=== PATIENT | female | born 1950 | race Caucasian/White ===

== ENCOUNTER 2016-12-31 12:05 | Emergency (ER) | payer BC ==
[2016-12-31] MEDS ORDERED: Zofran 4 MG/2 ML VIAL IV ONE (12:15)
[2016-12-31] MEDS ORDERED: Sodium Chloride 0.9% 1000 ML 1,000 ML IV STA (12:17)
[2016-12-31] MEDS ORDERED: Zofran 4 MG/2 ML VIAL ONE (12:21)
[2016-12-31] MEDS ORDERED: Sodium Chloride 0.9% 1000 ML 1,000 ML ONE (12:21)
[2016-12-31 12:49] LABS: BASOPHIL % 0.4 % (0.0-0.4); Eosinophil % 1.5 % (0.00-5.0); Granulocytes % 76.5 % (36.0-66.0); Lymphocytes % 15.8 % (24.0-44.0); Mean Cell Volume 93.8 fl (78-100); Mean Platelet Volume 9.8 fl (6-9.5); Monocytes % 5.8 % (0.0-12.0); Platelet Count 195 K/mm3 (150-450); Red Blood Count 3.85 M/mm3 (4.1-5.4); Red Cell Distribution Width 12.6 % (11.5-14.0); White Blood Count 5.2 K/mm3 (4.0-10.5)
[2016-12-31 12:53] LABS: Mean Corpuscular Hemoglobin 30.3 pg (26-32)
[2016-12-31 12:54] LABS: Collection Type VOID
--- NOTE | 2016-12-31 12:54 | ERPHSYRPT ---
- History of Present Illness Time Seen by Provider: 12/31/16 12:11 Source: patient Exam Limitations: no limitations Patient Subjective Stated Complaint: dizziness since scow captain Triage Nursing Assessment: dizziness and nausea scow captain. took antivert scow captain due to dizziness and room spinning. denies problems urinating or bowels. states has sinus fullness to lt face. denies cough or nasal drainage. ate breakfast. skin warm and dry. c/o dizziness worse with change of position Physician History: H/O prior episode of vertigo relieved by Antivert. No chest pain, SOB, or MCDONOUGH. Timing/Duration: today Severity: mild Character of Deficits: none Deficits: no difficulties Baseline/Normal Cognition: alert oriented x 3 Current Cognition: alert oriented x 3 Baseline Gait: walks w/o assistance Associated Symptoms: nausea, No ringing in ears, No vision changes, No chest pain, No headache Allergies/Adverse Reactions: No Known Drug Allergies Allergy (Unverified 12/31/16 12:16) Home Medications: Pravastatin Sodium 20 mg PO HS 12/31/16 [History] Hx Tetanus, Diphtheria Vaccination/Date Given: Yes Hx Influenza Vaccination/Date Given: Yes Hx Pneumococcal Vaccination/Date Given: No Immunizations Up to Date: Yes - Review of Systems Constitutional: No Symptoms Eyes: No Symptoms Ears, Nose, & Throat: No Symptoms Respiratory: No Symptoms Cardiac: No Symptoms Abdominal/Gastrointestinal: No Symptoms Musculoskeletal: No Symptoms Skin: No Symptoms Neurological: Dizziness Psychological: No Symptoms Endocrine: No Symptoms Hematologic/Lymphatic: No Symptoms - Past Medical History Pertinent Past Medical History: Yes Cardiac History: High Cholesterol - Past Surgical History Past Surgical History: No - Social History Smoking Status: Never smoker Exposure to second hand smoke: No Drug Use: none Patient Lives Alone: No - Nursing Vital Signs Nursing Vital Signs: Initial Vital Signs Temperature 98.1 F Temperature Source Oral Pulse Rate 71 Respiratory Rate 22 Blood Pressure [Right Arm] 107/68 Pain Intensity 0 - [place] Coma Scale Best Eye Response (Martin): (4) open spontaneously Best Verbal Response ([place]): (5) oriented Best Motor Response (Martin): (6) obeys commands Martin Total: 15 - Physical Exam General Appearance: moderate distress Eye Exam: bilateral eye: normal inspection, PERRL, EOMI Ears, Nose, Throat Exam: normal ENT inspection, TMs normal, pharynx normal Neck Exam: normal inspection, non-tender, supple, full range of motion Respiratory: normal breath sounds, lungs clear Cardiovascular: regular rate/rhythm, normal heart sounds, normal peripheral pulses Gastrointestinal: soft, normal bowel sounds Back Exam: normal inspection, normal range of motion Extremity Exam: normal inspection, normal range of motion, pelvis stable Mental Status: alert, oriented x 3 boarder hand Exam: normal hearing, normal speech, PERRL Motor/Sensory: no motor deficit, no sensory deficit Skin Exam: normal color, warm, dry SpO2 Interpretation: normal SpO2: 98 Oxygen Delivery: Room Air - Course Nursing assessment & vital signs reviewed: Yes EKG Interpreted by Me: RATE (73), Sinus Rhythm, NORMAL AXIS, NORMAL INTERVALS, NORMAL QRS - CT Exams Head CT Interpretation: Negative, Tele-radiologist Report Ordered Tests: Active Orders 24 hr Category Date Time Status EKG-ER Only STAT Care 12/31/16 12:15 Active IV Insertion STAT Care 12/31/16 12:18 Active Orthostatic Vital Signs STAT Care 12/31/16 12:18 Active HEAD WITHOUT CONTRAST [CT] Stat Exams 12/31/16 12:15 Completed CBC W DIFF Stat Lab 12/31/16 12:43 Completed CMP Stat Lab 12/31/16 12:43 Completed TROPONIN Stat Lab 12/31/16 12:43 Completed UA W/RFX UR CULTURE Stat Lab 12/31/16 12:35 Completed Medication Summary Discontinued Medications Generic Name Dose Route Start Last Admin Trade Name Freq PRN Reason Stop Dose Admin Sodium Chloride 1,000 mls @ 999 mls/hr 12/31/16 12:17 12/31/16 12:30 Sodium Chloride 0.9% 1000 Ml IV 12/31/16 13:17 999 mls/hr .Q1H1M STA Administration Sodium Chloride Confirm 12/31/16 12:21 Sodium Chloride 0.9% 1000 Ml Administered 12/31/16 12:22 Dose 1,000 mls @ ud .ROUTE .STK-MED ONE Ondansetron HCl 4 mg 12/31/16 12:15 12/31/16 12:30 Zofran 4 Mg/2 Ml Vial IV 12/31/16 12:16 4 mg STAT ONE Administration Ondansetron HCl Confirm 12/31/16 12:21 Zofran 4 Mg/2 Ml Vial Administered 12/31/16 12:22 Dose 4 mg .ROUTE .STK-MED ONE Lab/Rad Data: Laboratory Result Diagrams 12/31/16 12:43 12/31/16 12:43 Laboratory Results 12/31/16 12/31/16 12/31/16 Range/Units 12:43 12:43 12:35 WBC 5.2 (4.0-10.5) K/mm3 RBC 3.85 L (4.1-5.4) M/mm3 Hgb 11.7 L (12.0-16.0) gm/dl Hct 36.1 (35-47) % MCV 93.8 (78-100) fl MCH 30.3 (26-32) pg MCHC 32.4 (32-36) g/dl RDW 12.6 (11.5-14.0) % Plt Count 195 (150-450) K/mm3 MPV 9.8 H (6-9.5) fl Gran % 76.5 H (36.0-66.0) % Lymphocytes % 15.8 L (24.0-44.0) % Monocytes % 5.8 (0.0-12.0) % Eosinophils % 1.5 (0.00-5.0) % Basophils % 0.4 (0.0-0.4) % Basophils # 0.02 (0-0.4) Sodium 140 (136-145) mEq/L Potassium 4.0 (3.5-5.1) mEq/L Chloride 104 (98-107) mEq/L Carbon Dioxide 27.3 (21-32) mEq/L Anion Gap 12.3 (5-15) MEQ/L BUN 19 (9-20) mg/dL Creatinine 1.00 (0.55-1.30) mg/dl Estimated GFR 59 ML/MIN Glucose 115 H (70-110) MG/DL Calcium 8.2 L (8.5-10.1) mg/dL Total Bilirubin 0.3 (0.2-1.0) mg/dL AST 24 (15-37) U/L ALT 25 (12-78) U/L Alkaline Phosphatase 59 (46-116) U/L Troponin I < 0.017 (0.000-0.056) ng/ml Serum Total Protein 6.9 (6.4-8.2) gm/dL Albumin 3.6 (3.4-5.0) g/dL Ur Collection Type VOID Urine Color YELLOW (YELLOW) Urine Appearance CLOUDY (CLEAR) Urine pH 7.0 (5-6) Ur Specific [place] 1.020 (1.005-1.025) Urine Protein NEGATIVE (Negative) Urine Glucose (UA) NEGATIVE (NEGATIVE) mg/dL Urine Ketones NEGATIVE (NEGATIVE) Urine Nitrite NEGATIVE (NEGATIVE) Urine Bilirubin NEGATIVE (NEGATIVE) Urine Urobilinogen 0.2 (0-1) mg/dL Urine WBC (Auto) NEGATIVE (NEGATIVE) Urine RBC (Auto) NEGATIVE (0-5) [place]/ul Specimen Received 12/31/16 1255 - Progress Progress: improved Counseled pt/family regarding: lab results, diagnosis, need for follow-up, rad results - Departure Time of Disposition: 14:00 Departure Disposition: Home Clinical Impression: Vertigo Condition: Stable Critical Care Time: Yes Critical Care Time(excluding separately billable procedures): 75-104 minutes Prescriptions: Meclizine HCl 25 mg [Antivert 25 mg] 1 tab PO Q6H PRN PRN #24 tablet PRN Reason: dizziness Ondansetron [Zofran Odt] 4 mg PO Q6HPRN PRN #10 tab.rapdis PRN Reason: Nausea/Vomiting
[2016-12-31 12:55] LABS: ADD URINE CULTURE? NO (NO); COMPLETE URINE MICROSCOPIC? NO
[2016-12-31 13:12] LABS: ALBUMIN 3.6 g/dL (3.4-5.0); ALKALINE PHOSPHATASE 59 U/L (46-116); ANION GAP 12.3 MEQ/L (5-15); BILIRUBIN,TOTAL 0.3 mg/dL (0.2-1.0); BLOOD UREA NITROGEN 19 mg/dL (9-20); CHLORIDE 104 mEq/L (98-107); Carbon Dioxide 27.3 mEq/L (21-32); Glucose 115 MG/DL (70-110); SGOT/AST 24 U/L (15-37); SGPT/ALT 25 U/L (12-78); SODIUM 140 mEq/L (136-145); Total Protein 6.9 gm/dL (6.4-8.2)
[2016-12-31 13:13] LABS: TROPONIN < 0.017 ng/ml (0.000-0.056)
--- NOTE | 2016-12-31 13:22 | XRAY ---
Indication: Sudden onset nausea and dizziness. Multiple contiguous axial images obtained through the head without contrast. Comparison: None Normal appearing brain parenchyma, ventricles, and bony calvarium. Visualized paranasal sinuses and mastoid air cells are pneumatized and clear. Impression: Normal CT head without contrast exam. CT DI 69.66
[2016-12-31 14:01] VITALS: O2SAT 98
[2016-12-31 14:18] VITALS: BP 115/61; PULSE 74
== END 2016-12-31 14:20 | disposition home or self-care (01) ==
LOC: ED 12:05
DX: R42 Dizziness and giddiness (principal); R11.0 Nausea; E78.00 Pure hypercholesterolemia, unspecified
CPT/HCPCS: 36000; 36415; 70450; 80053; 81000; 84484; 85025; 93005; 96360; 96374; 99284; J2405

== ENCOUNTER 2023-02-08 15:57 | Emergency (ER) | payer MEDICARE, OTHER ==
[2023-02-08] MEDS ORDERED: BENADRYL 50 MG/ML IV ONE (16:07)
[2023-02-08] MEDS ORDERED: solu-MEDROL 125 MG, Sterile H2O 10 ml 2 ML IV ONE ×2 (16:08)
[2023-02-08] MEDS ORDERED: Pepcid 20 MG VIAL IV ONE ×2 (16:09→16:11)
[2023-02-08] MEDS ORDERED: BENADRYL 50 MG/ML ONE (16:11)
[2023-02-08] MEDS ORDERED: Sterile H2O 10 ml IJ ONE (16:11)
[2023-02-08] MEDS ORDERED: solu-MEDROL ONE (16:12)
--- NOTE | 2023-02-08 16:36 | ERPHSYRPT ---
- History of Present Illness Time Seen by Provider: 02/08/23 16:10 Source: patient Exam Limitations: no limitations Patient Subjective Stated Complaint: pt state allergic reaction 15 minutes after new medication Triage Nursing Assessment: pt ambulated into the er; pt is axo x4; c/o allergic reaction; no respiratory distress present; clear lung sounds in all lobes; red raised rash to alok knees, BUE, torso; hypertension; pt denies SOB or pain; pt denies itching Physician History: Patient is a 72-year-old white female who her first dose of a new vitamin herb [id number]-[id number] medicine about 15 minutes later she began to itch and break out in a [employer] rash. She took 125 mg Benadryl and came to the ER. She denies any difficulty breathing or swallowing only the rash and itching. Timing/Duration: today Quality: burning, itchy, painful Severity: moderate Location: generalized Possible Causes: other (Pivj-hjy-[id number] medications) Modifying Factors: Improves With: antihistamine Associated Symptoms: flushing, hives, rash Allergies/Adverse Reactions: No Known Drug Allergies Allergy (Verified 02/08/23 16:06) Home Medications: Pravastatin Sodium 10 mg PO HS 12/31/16 [History] Hx Tetanus, Diphtheria Vaccination/Date Given: Yes Hx Influenza Vaccination/Date Given: Yes Hx Pneumococcal Vaccination/Date Given: No Travel Risk - International Travel Have you traveled outside of the country in past 3 weeks: No - Coronavirus Screening Are you exhibiting any of the following symptoms?: No Close contact with a COVID-19 positive Pt in past 14-21 Days: No - Vaccine Status Have you recieved a Covid-19 vaccination: Yes Planning Rn: Moderna - Vaccination Dates Date of 2cond Vaccination (if applicable): 2020 - Review of Systems Constitutional: No Fever, No Chills Eyes: No Symptoms Ears, Nose, & Throat: No Symptoms Respiratory: No Cough, No Dyspnea Cardiac: No Chest Pain, No Edema, No Syncope Abdominal/Gastrointestinal: No Abdominal Pain, No Nausea, No Vomiting, No Diarrhea Genitourinary Symptoms: No Dysuria Musculoskeletal: No Back Pain, No Neck Pain Skin: Pruritis, Rash Neurological: No Dizziness, No Focal Weakness, No Sensory Changes Psychological: No Symptoms Endocrine: No Symptoms All Other Systems: Reviewed and Negative - Past Medical History Pertinent Past Medical History: Yes Neurological History: No Pertinent History Cardiac History: High Cholesterol Respiratory History: No Pertinent History Endocrine Medical History: No Pertinent History Musculoskeletal History: Osteoarthritis GI Medical History: GERD Other Medical History: OSTEOPENIA - Past Surgical History Past Surgical History: No - Social History Smoking Status: Never smoker Exposure to second hand smoke: No Drug Use: none Patient Lives Alone: No - Nursing Vital Signs Nursing Vital Signs: Initial Vital Signs Temperature 96.4 F 02/08/23 15:58 Pulse Rate 83 02/08/23 15:58 Respiratory Rate 14 02/08/23 15:58 Blood Pressure 166/84 02/08/23 15:58 O2 Sat by Pulse Oximetry 100 02/08/23 15:58 Pain Scale Pain Intensity 0 - Physical Exam General Appearance: mild distress Eye Exam: PERRL/EOMI, eyes nml inspection Ears, Nose, Throat Exam: normal ENT inspection, pharynx normal, moist mucous membranes Neck Exam: normal inspection, non-tender, supple, full range of motion Respiratory Exam: normal breath sounds, lungs clear, No respiratory distress Cardiovascular Exam: regular rate/rhythm, normal heart sounds Gastrointestinal/Abdomen Exam: soft, mass, No tenderness Back Exam: normal inspection, normal range of motion, No CVA tenderness, No vertebral tenderness Extremity Exam: normal inspection Neurologic Exam: alert, oriented x 3, cooperative, normal mood/affect, sensation nml, No motor deficits Skin Exam: rash (Urticarial) SpO2 Interpretation: normal SpO2: 100 O2 Delivery: Room Air - Course Nursing assessment & vital signs reviewed: Yes Ordered Tests: Active Orders 24 hr Category Date Time Status IV Insertion STAT Care 02/08/23 16:10 Active Medication Summary Discontinued Medications Generic Name Dose Route Start Last Admin Trade Name Carlosq PRN Reason Stop Dose Admin Methylprednisolone Sodium 0 mg 02/08/23 16:08 02/08/23 16:14 Succinate 125 mg/ Sterile IV 02/08/23 16:09 125 mg Water 2 ml STAT ONE Administration Diphenhydramine HCl 25 mg 02/08/23 16:07 02/08/23 16:14 Diphenhydramine Hcl 50 Mg/Ml Vial IV 02/08/23 16:08 25 mg STAT ONE Administration Diphenhydramine HCl Confirm 02/08/23 16:11 Diphenhydramine Hcl 50 Mg/Ml Vial Administered 02/08/23 16:12 Dose 50 mg .ROUTE .STK-MED ONE Famotidine 20 mg 02/08/23 16:09 02/08/23 16:14 Famotidine 20 Mg/1 Vial IV 02/08/23 16:10 20 mg STAT ONE Administration Famotidine Confirm 02/08/23 16:11 Famotidine 20 Mg/1 Vial Administered 02/08/23 16:12 Dose 20 mg IV .STK-MED ONE Methylprednisolone Sodium Succinate Confirm 02/08/23 16:12 Methylprednis Sod Succ 125 Mg/2 Ml Vial Administered 02/08/23 16:13 Dose 125 mg .ROUTE .STK-MED ONE Sterile Water Confirm 02/08/23 16:11 Water For Injection,Sterile 10 Ml Vial Administered 02/08/23 16:12 Dose 10 ml IJ .STK-MED ONE - Progress Progress: improved Medical Desision Making - Risk of complications Minimal Risk: Minimal risk of morbidity - Departure Departure Disposition: Home Clinical Impression: Urticaria Condition: Stable Critical Care Time: No Referrals: LORETTA FLORES DO [Primary Care Provider] - Follow up/PCP as directed Instructions: Adverse Drug Reactions, Adult (DC) Prescriptions: Prednisone 10 mg [Deltasone 10 mg] 10 mg PO TID #12 tablet
[2023-02-08 17:34] VITALS: O2SAT 100
[2023-02-08 17:43] VITALS: BP 141/84; PULSE 76
== END 2023-02-08 17:43 | disposition home or self-care (01) ==
LOC: ED 15:57
DX: L50.9 Urticaria, unspecified (principal); E78.5 Hyperlipidemia, unspecified; Z79.52 Long term (current) use of systemic steroids; Z79.899 Other long term (current) drug therapy
CPT/HCPCS: 36000; 96374; 96375; 99283; J1200; J2930